=== PATIENT | female | born 1990 | race Caucasian/White ===

== ENCOUNTER 2024-06-30 05:45 | Day surgery (SDC) | payer MEDICARE, OTHER ==
[2024-06-25 11:38] VITALS: BP 93/54
[~2024-06-30] VITALS: Ht 152.4 cm; Wt 46.2 kg
[~2024-06-30 05:45] MED LIST: AMITRIPTYLINE H10 MG PO; BACLOFEN10 MG PO; DICYCLOMINE HCL10 MG PO; HYDROXYZINE PAM25 MG PO; LACTATED RINGER'S 1,000 ML IV SCH; LEXAPRO10 MG PO; ONDANSETRON ODT8 MG PO
[2024-06-30 05:58] VITALS: BP 106/61
[2024-06-30] MEDS ORDERED: FAMOTIDINE 20 MG/ 2 ML VIAL ONE (06:41)
[2024-06-30] MEDS ORDERED: ROCURONIUM BROMIDE 50 MG/5 ML SYR ONE (06:41)
[2024-06-30] MEDS ORDERED: SUGAMMADEX SODIUM 200 MG/2 ML ML ONE (06:41)
[2024-06-30] MEDS ORDERED: SUCCINYLCHOLINE IN 0.9% NACL 200 MG/10 ML SYRINGE ONE (06:41)
[2024-06-30] MEDS ORDERED: fentaNYL citrate 100 MCG/2 ML VIAL ONE (06:41)
[2024-06-30] MEDS ORDERED: LACTATED RINGER'S 1,000 ML IV ONE (06:41)
[2024-06-30] MEDS ORDERED: DEXAMETHASONE SOD PHOS 4 MG/ML VIAL ONE (06:41)
[2024-06-30] MEDS ORDERED: MIDAZOLAM HCL 2 MG/2 ML VIAL ONE (06:41)
[2024-06-30] MEDS ORDERED: propofoL 200 MG/20 ML VIAL ONE ×2 (06:41→06:44)
[2024-06-30] MEDS ORDERED: ondansetron HCL 4 MG/2 ML VIAL ONE (06:41)
[2024-06-30] MEDS ORDERED: KETOROLAC TROMETHAMINE 30 MG/ML VIAL ONE (06:41)
[2024-06-30] MEDS ORDERED: LIDOCAINE HCL 4% 5 ML AMP ONE (06:41)
[2024-06-30] MEDS ORDERED: METOCLOPRAMIDE HCL 10 MG/2 ML SDV ONE (06:41)
[2024-06-30] MEDS ORDERED: SCOPOLAMINE 1 MG/3 DAYS PATCH 1 EACH TDSY ONE (06:44)
[2024-06-30] MEDS ORDERED: IBLOOD GLUCOSE TEST STRIP 1 EA TEST VI PRN ×2 (07:00→08:15)
[2024-06-30] MEDS ORDERED: LIDOCAINE HCL 1% 5 ML SDV INJ ONE (07:00)
[2024-06-30] MEDS ORDERED: droPERidol 5 MG/2 ML VIAL ONE (07:28)
[2024-06-30] MEDS ORDERED: PROCHLORPERAZINE EDISYLATE 10 MG/2 ML VIAL ONE (07:29)
[2024-06-30] MEDS ORDERED: dexmedeTOMIDine HCl 200 MCG/2 ML VIAL ONE (08:09)
[2024-06-30] MEDS ORDERED: ondansetron HCL 4 MG/2 ML VIAL IV PRN ×2 (08:15→09:30)
[2024-06-30] MEDS ORDERED: NALOXONE HCL 0.4 MG SYR IV PRN ×2 (08:15→09:30)
[2024-06-30] MEDS ORDERED: MORPHINE SULFATE 10 MG/ML VIAL IV PRN (08:15)
[2024-06-30] MEDS ORDERED: METOCLOPRAMIDE HCL 10 MG/2 ML SDV IV PRN ×2 (08:15→09:30)
[2024-06-30] MEDS ORDERED: PROCHLORPERAZINE EDISYLATE 10 MG/2 ML VIAL IV PRN (08:15)
[2024-06-30] MEDS ORDERED: fentaNYL citrate 50 MCG/ML SDV IV PRN (08:15)
[2024-06-30] MEDS ORDERED: MIDAZOLAM HCL 2 MG/2 ML VIAL IV PRN (08:15)
[2024-06-30] MEDS ORDERED: KETOROLAC TROMETHAMINE 30 MG/ML VIAL IV PRN (08:15)
[2024-06-30] MEDS ORDERED: MEPERIDINE HCL 25 MG/1 ML VIAL IV PRN (08:15)
[2024-06-30] MEDS ORDERED: droPERidol 5 MG/2 ML VIAL IV PRN (08:15)
--- NOTE | 2024-06-30 08:41 | NUR ---
06/30/24 0841 Maxine Last PATIENT OPENS HER EYES. SHE FOLLOWS INSTRUCTIONS TO OPEN HER MOUTH. ORAL AIRWAY IS REMOVED. SHE RETURNS TO RESTING QUIETLY, WITH HER EYES CLOSED.
[2024-06-30] MEDS ORDERED: SEVOFLURANE 250 ML BTL INH ONE (08:49)
[2024-06-30 09:02] VITALS: BP 111/61
--- NOTE | 2024-06-30 09:28 | NUR ---
7025 PT ARRIVED TO DAY SURGERY VIA YUACHER FROM PACU. REPORT TAKEN FROM CHAPO NASH. PT REPORTS TOLERABLE 2/10 PAIN, PT REPORTS NO NAUSEA AT THIS TIME. PT VITALS TAKEN. IV ASSESSED. FAMILY AT BEDSIDE. BED LOW AND LOCKED AND CALL LIGHT WTIHIN REACH. PT HAS WATER AND CRACKERS AT BEDSIDE.
[2024-06-30] MEDS ORDERED: FAMOTIDINE 20 MG TAB PO PRN (09:30)
[2024-06-30] MEDS ORDERED: bisacodyL 10 MG SUPP PR PRN (09:30)
[2024-06-30] MEDS ORDERED: FAMOTIDINE 20 MG/ 2 ML VIAL IV PRN (09:30)
[2024-06-30] MEDS ORDERED: HYDROCODONE/ACETA 5/325 TAB PO PRN (09:30)
[2024-06-30] MEDS ORDERED: LACTATED RINGER'S 1,000 ML IV SCH (09:30)
[2024-06-30] MEDS ORDERED: MAGNESIUM HYDROXIDE/AL HYDROX 30 ML CUP PO PRN (09:30)
[2024-06-30] MEDS ORDERED: SIMETHICONE 80 MG CHEW PO PRN (09:30)
[2024-06-30 09:51] VITALS: BP 109/64
--- NOTE | 2024-06-30 10:30 | NUR ---
0940 HOURLY ROUNDING DONE WITH PT. VITALS TAKEN. IV ASSESSED. PT REPORTS NEEDING TO URIANTE. PT REPORTS TOLERABLE 2/10 PAIN. PT REPORTS NO NAUSEA AT THIS TIME. 0945 PT ABLE TO AMBULATE TO BATHROOM AND VOIDS 100 MLS OF YELLOW URINE WITH ONE SMALL BLOOD CLOT NOTED. PT ABLE TO AMULATE BACK TO ROOM. 0950 IV REMOVED FOR DISCHARGE. PT ABLE TO GET DRESSED ON OWN. 1000 DISCHARGE INFORMATION GONE OVER WITH PT AND AUNT. NO QUESTIONS AT THIS TIME. 1005 PT DISCHARGED FROM DAY SURGERY VIA WHEELCHAIR TO THE FRONT OF THE HOSPITAL TO PT'S AUNT'S CAR. PT HAS DISCHARGE INFORMATION IN HAND.
[2024-06-30] MEDS ORDERED: SIMETHICONE 80 MG CHEW PO SCH (13:00)
[2024-06-30] MEDS ORDERED: SENNOSIDES/DOCUSATE 1 EA TAB PO SCH (21:00)
[2024-06-30] MEDS ORDERED: MINERAL OIL/CHONDRUS 30 ML BTL PO SCH (21:00)
--- NOTE | 2024-07-02 10:39 | PATH ---
[facility] [address], [place] [address] Signed SPECIMEN(S): A FALLOPIAN TUBES, BILATERAL SPECIMEN SOURCE: A. FALLOPIAN TUBES, BILATERAL v CLINICAL HISTORY: Family history ca FINAL PATHOLOGIC DIAGNOSIS: Fallopian tubes, bilateral, salpingectomy: - Fimbriated fallopian tube segments (two) with a paratubal cyst BRP MICROSCOPIC EXAMINATION: Histologic sections of all submitted blocks are examined by light microscopy. These findings, together with the gross examination, support the pathologic diagnosis. GROSS DESCRIPTION: The specimen, labeled and designated "Ion, R., bilateral fallopian tubes per requisition," is received fresh and placed in formalin and consists of 2 pink-purple fallopian tubes with undesignated laterality. The first arbitrarily designated fallopian tube measures 8.4 x 0.8 x 0.7 cm and has an attached fimbriated end. The serosal surface is smooth with a single paratubal cyst measuring 0.6 cm in greatest dimension. The second arbitrarily designated fallopian tube measures 8 x 0.8 x 0.7 cm and has an attached fimbriated end. The serosal surface is smooth with no apparent paratubal cyst. The specimens are serially sectioned revealing a pinpoint lumen. Computer Networking Instructor Adjunct sections are submitted as follows: Cassette Summary: (A1) first fallopian tube, fimbriated end totally embedded (A2) second fallopian tube, fimbriated end totally embedded AA (under the direct supervision of a pathologist) The Gross Description was prepared using a voice recognition system. The report was reviewed for accuracy; however, sound-alike word errors, addition and/or deletions may occur. If there is any question about this report, please contact Client Services. PATIENT NAME: MICHELLE COLMENARES PATHOLOGY DATE OF : 89 REPORT #: [id number] PHYSICIAN: YAO PATHOLOGY PCP: IRON TSAI MD REPORT IS CONFIDENTIAL AND NOT TO BE RELEASED WITHOUT AUTHORIZATION [facility] [address], [place] [address] Signed ADDITIONAL NOTES: Immunohistochemical and/or in situ hybridization studies if performed in this case included appropriate positive controls that reacted as expected. This test was developed and its performance characteristics determined by [facility]. It has not been cleared or approved by the U.S. Food and Drug Administration. The FDA has determined that such clearance or approval is not necessary. This test is used for clinical purposes. It should not be regarded as investigational or for research. [facility] is certified under the Clinical Laboratory Improvement Amendments of 1988 (CLIA) as qualified to perform high complexity clinical laboratory testing. PERFORMING LABORATORY: Technical component was performed by [facility], [address] [place] [id number] (CLIA# [id number]). Professional interpretation was performed by [facility], [address] [place] [id number] (CLIA#: [id number]). Diagnostician: Sravan Whelan MD Pathologist Electronically Signed 07/02/2024 Copies: ~ PATIENT NAME: MICHELLE COLMENARES PATHOLOGY DATE OF : [birth year] REPORT #: [id number] PHYSICIAN: YAO PATHOLOGY PCP: IRON TSAI MD REPORT IS CONFIDENTIAL AND NOT TO BE RELEASED WITHOUT AUTHORIZATION
== END 2024-06-30 10:05 | disposition home or self-care (01) ==
LOC: DS 05:45
PROVIDERS: ATTEND Obstetrics & Gynecology
PROC: 0UT74ZZ Resection of Bilateral Fallopian Tubes, Percutaneous Endoscopic Approach (ICD-10-PCS; principal; 2024-06-30 07:30)
DX: Z30.2 Encounter for sterilization (principal); N83.8 Other noninflammatory disorders of ovary, fallopian tube and broad ligament; K31.84 Gastroparesis; Z96.82 Presence of neurostimulator; Z79.899 Other long term (current) drug therapy; Z80.49 Family history of malignant neoplasm of other genital organs
CPT/HCPCS: 00840; 88302; J0330; J0780; J1100; J1790; J1885; J2250; J2405; J2704; J2765; J3010; J3490; J7121